=== PATIENT | male | born 1940 | race Caucasian/White ===

== ENCOUNTER 2023-03-21 14:55 | Emergency (ER) | payer MEDICAID ==
[~2023-03-21] VITALS: Ht 170.2 cm; Wt 68.0 kg
[2023-03-21 14:59] VITALS: O2SAT 97
[2023-03-21] MEDS ORDERED: LIDO700A15 TP ×2 (15:43)
[2023-03-21] MEDS ORDERED: NAPR-681 MT ×2 (15:43)
[2023-03-21] MEDS ORDERED: TOPUD MT ×2 (15:43)
[2023-03-21] MEDS ORDERED: BACITRACIN ZINC OINT UDPKT TOP ONE (17:30)
[2023-03-21] MEDS ORDERED: BO1 TP (17:38)
[2023-03-21] MEDS ORDERED: TETANUS, DIPHTHERIA, PERTUSSIS VAC/PF 0.5ML (>10YR OLD) IM ONE (18:00)
[2023-03-21 19:24] VITALS: BP 128/88; PULSE 70; RESP 18; TEMP 98.7
== END 2023-03-21 19:25 | disposition home or self-care (01) ==
LOC: ER 15:07
DX: S41.111A Laceration without foreign body of right upper arm, initial encounter (principal); X58.XXXA Exposure to other specified factors, initial encounter; Y93.89 Activity, other specified; Y92.89 Other specified places as the place of occurrence of the external cause; Y99.8 Other external cause status
CPT/HCPCS: 90471; 90715; 99283